=== PATIENT | male | born 1935 | race Caucasian/White ===

== ENCOUNTER 2019-12-08 10:37 | Day surgery (SDC) | payer MEDICARE, OTHER ==
[2019-12-05 14:21] LABS: BASOPHILS % (AUTO) 0.3 % (0.0-5.0); HEMATOCRIT 38.6 % (42-54); LYMPHOCYTES % (AUTO) 20.4 % (21.0-51.0); MEAN CORPUSCULAR HEMOGLOBIN 30.5 pg (27.0-33.0); MEAN CORPUSCULAR HGB CONC 32.6 g/dL (32.0-36.0); MEAN CORPUSCULAR VOLUME 93.5 fL (79-99); MONOCYTES % (AUTO) 11.7 % (3.0-13.0); NEUTROPHILS % (AUTO) 65.3 % (40.0-77.0); PLATELET COUNT (AUTO) 273 K/uL (130-400); RED BLOOD CELL COUNT(AUTO) 4.13 MIL/uL (4.50-6.20); RED CELL DISTRIBUTION WIDTH 13.9 % (11.0-15.5)
[2019-12-05 14:24] LABS: APPEARANCE,URINE Turbid (CLEAR); BILIRUBIN,URINE Negative (NEGATIVE); COLOR,URINE Dark Yellow (YELLOW); GLUCOSE, URINE (UA) Negative (NEGATIVE); KETONES,URINE Trace mg/dL (NEGATIVE); LEUKOCYTE ESTERASE ,URINE Large (NEGATIVE); NITRATE,URINE Negative (NEGATIVE); OCCULT BLOOD,URINE Large (NEGATIVE); PH,URINE 5.5 (5.0-8.0); PROTEIN,URINE 300 mg/dL (NEGATIVE)
[2019-12-05 14:25] VITALS: BP 152/66
[2019-12-05 14:34] LABS: CREATININE 1.8 mg/dL (0.5-1.5); POTASSIUM 4.9 mmol/L (3.5-5.1)
[2019-12-05 14:37] LABS: BACTERIA,URINE Few /HPF (None Seen); RBC,URINE 51-100 /HPF (0-1); SQUAMOUS EPITHELIAL CELL,UR Rare /HPF (0-2); WBC,URINE TNTC /HPF (0-1)
--- NOTE | 2019-12-07 16:52 | NUR ---
PER DR. SINGER OFFICE BRYSON SPANGLER NEEDS A XRAY AND EKG IN AM. ABNORMAL LABS REPORTED AND OK TO PROCEED.
[~2019-12-08] VITALS: Ht 182.9 cm; Wt 88.9 kg
[2019-12-08] VITALS (18 sets, daily range): BP systolic 116–158; BP diastolic 59–90
[2019-12-08] MEDS: CEFTRIAXONE SODIUM 1 GM IVP SCH ×2 (06:00→14:55)
[~2019-12-08 10:37] MED LIST: ASPI-555 PO; ATOR20TA65 PO; CALCIUM PO; CYAN-35 PO; FISH1CAP63 PO; GENTAMICIN 80 MG/NS 100 ML PB 100 ML IV SCH; MITOMYCIN 40 MG VIAL SCH; NIFE60TA81 PO; PANT40TA25 PO; TEMA30CA PO; VITAMIN D3 PO; [UNRECOGNIZED DRUG - OTHER] PO
[2019-12-08] MEDS ORDERED: LACTATED RINGERS 1000ML 1,000 ML IV ONE (12:28)
[2019-12-08] MEDS ORDERED: IOHEXOL-350 50ML VIAL IV ONE (13:03)
[2019-12-08] MEDS ORDERED: LIDOCAINE PF 2% 5ML ABBOJECT ONE (14:39)
[2019-12-08] MEDS ORDERED: FENTANYL CITRATE PF 50 MCG/1 ML 5ML AMP IV ONE (14:40)
[2019-12-08] MEDS ORDERED: PROPOFOL 10 MG/ML 20ML VIAL IV ONE (14:40)
[2019-12-08] MEDS ORDERED: ROCURONIUM 10MG/1ML SYR 10 MG/ML ML ONE (14:40)
[2019-12-08] MEDS ORDERED: MIDAZOLAM HCL 1 MG/ML 2ML VIAL ONE (14:52)
== END 2019-12-08 19:10 | disposition home or self-care (01) ==
LOC: DAH 10:37
PROVIDERS: ATTEND Urology
DX: D09.0 Carcinoma in situ of bladder (principal); C80.1 Malignant (primary) neoplasm, unspecified; N13.30 Unspecified hydronephrosis; E78.5 Hyperlipidemia, unspecified; I10 Essential (primary) hypertension; Z86.73 Personal history of transient ischemic attack (TIA), and cerebral infarction without residual deficits; Z88.0 Allergy status to penicillin
CPT/HCPCS: 36415; 51720; 52224; 52332; 52354; 71045; 74420; 80048; 81001; 85025; 87077; 87088; 87186; 88305; 93005; A4215; A4216; A4221; A4222; A4223 ×2; A4354; A4600; A4663; C1758; C1769; C2617; J0696; J1580; J2001; J2250; J2704; J3010; J7030; J7120; J9280; Q9967